=== PATIENT | male | born 1945 | race Caucasian/White ===

== ENCOUNTER 2021-09-09 09:19 | Emergency (ER) | payer MEDICARE, OTHER ==
[~2021-09-09] VITALS: Ht 177.8 cm; Wt 106.8 kg
[2021-09-09 09:55] VITALS: TEMP 97.5
[2021-09-09] MEDS ORDERED: ROXICODONE 55 MG/TAB PO (12:25)
[2021-09-09 12:44] VITALS: BP 151/90; PULSE 84
== END 2021-09-09 12:53 | disposition home or self-care (01) ==
LOC: COL.ER 09:19
DX: S62.397A Other fracture of fifth metacarpal bone, left hand, initial encounter for closed fracture (principal); S20.312A Abrasion of left front wall of thorax, initial encounter; S60.512A Abrasion of left hand, initial encounter; S60.812A Abrasion of left wrist, initial encounter; Z23 Encounter for immunization; W01.0XXA Fall on same level from slipping, tripping and stumbling without subsequent striking against object, initial encounter; Y92.59 Other trade areas as the place of occurrence of the external cause
CPT/HCPCS: A9284